=== PATIENT | male | born 1970 | race Caucasian/White ===

== ENCOUNTER → 2017-12-14 | Outpatient (CLI) | payer OTHER ==
[~2017-12-14] MED LIST: LANS15CA6 PO
[2017-12-14 17:49] LABS: BASO % 1.4 %; BASO ABS # 0.08 K/uL (0-0.2); EOS % 4.6 %; EOS ABS # 0.27 K/uL (0-0.5); HEMATOCRIT 45.2 % (42-52); HEMOGLOBIN 15.7 g/dL (14.0-18.0); IG# 0.02 K/uL (0.00-0.02); LYMPH % 24.1 %; LYMPH ABS # 1.41 K/uL (1.2-3.4); MEAN CELL VOLUME 83.5 fL (80-100); MEAN CORPUSCULAR HGB CONC 34.7 g/dl (32-36); MEAN PLATELET VOLUME 10.3 fL (7.4-10.4); MONO % 9.1 %; MONO ABS # 0.53 K/uL (0.11-0.59); NEUT % 60.5 %; NEUT ABS # 3.54 K/uL (1.4-6.5); PLATELET COUNT 267 K/uL (130-400); RED CELL DISTRIBUTION WIDTH CV 13.6 % (11.5-14.5); WHITE BLOOD COUNT 5.85 K/uL (4.8-10.8)
[2017-12-14 18:14] LABS: ALBUMIN 4.3 gm/dl (3.4-5.0); ALT/SGPT 46 U/L (12-78); AST/SGOT 20 U/L (15-37); BLOOD UREA NITROGEN 14 mg/dl (7-18); CALCIUM 9.1 mg/dl (8.5-10.1); CARBON DIOXIDE 28 mmol/L (21-32); CREATININE 1.05 mg/dl (0.60-1.40); GLUCOSE 97 mg/dl (70-99); POTASSIUM 4.3 mmol/L (3.5-5.1); SODIUM 137 mmol/L (136-145)
[2017-12-14 18:25] LABS: ALKALINE PHOSPHATASE 72 U/L (45-117); CHOLESTEROL 212 mg/dl (0-200); LDL CHOLESTEROL CALCULATED 132 mg/dl
== END | disposition home or self-care (01) ==
LOC: C.LABPBG 12:04
PROVIDERS: ATTEND Neuromusculoskeletal Medicine & OMM
DX: R53.83 Other fatigue (principal); R06.83 Snoring; Z13.220 Encounter for screening for lipoid disorders

== ENCOUNTER 2023-10-28 06:07 | Observation (INO) ==
--- NOTE | 2023-10-21 13:45 | Anesthesiology Consultation ---
Date of Service October 21, 2023 Assessment & Plan Chart Review Chart Review: Acceptable Risk for Surgery and Patient NOT seen in Pre Admission Testing Consults Requested none History Surgery Operation Date: 10/28/23 07:30 Proposed Procedures p Robotic Assisted Laparoscopic Radical Retropubic Prostatectomy, Possible Open, Possible Pelvic Lymph Node Dissection - Landon David MD Height/Weight Height: 5 ft 6 in Weight: 81.647 kg Allergies Allergy/AdvReac Type Severity Reaction Status Date / Time No Known Drug Allergies Allergy Verified 10/21/23 12:10 Medications Home Medications Medication Instructions Recorded Confirmed Last Taken albuterol sulfate 1.25 mg/3 mL 1.25 mg (3 mL) inhalation QID PRN 06/27/19 10/21/23 Unknown solution for nebulization shortness of breath or wheezing #90 mL fluocinolone 0.01 % topical body 1 appln topical UD #118.28 mL 06/27/19 10/21/23 Unknown oil betamethasone valerate 0.1 % 1 applic topical DAILY #45 grams 10/22/20 10/21/23 Unknown topical cream montelukast 10 mg tablet 10 mg PO QPM #30 tabs 03/18/21 10/21/23 Unknown albuterol sulfate 90 mcg/actuation 1 - 2 puff inhalation Q4H PRN 05/23/21 10/21/23 Unknown aerosol inhaler bronchospasm #18 grams fluticasone 250 mcg-salmeterol 50 1 inh inhalation QAM 08/24/23 10/21/23 Unknown mcg/dose blistr powdr for inhalation (Advair Diskus) alfuzosin 10 mg tablet,extended See Rx Instructions .Route 09/14/23 10/21/23 Unknown release 24 hr .COMPLEX #90 tabs Medical Marijuana 1 dose PO DIRECTED PRN Pain 10/21/23 10/21/23 Unknown lansoprazole 30 mg capsule,delayed 30 mg PO QAM 10/21/23 10/21/23 Unknown release Past Medical History Medical History Hiatal hernia COVID-19 tested at Urgent Care in [place] > Oct 09, 2023 > congestion, loss of taste/smell > all resolved Hyperlipidemia pt unaware Asthma uses res inh more in fall/spring Psoriasis GERD (gastroesophageal reflux disease) Prostate cancer (08/05/23) Elevated prostate specific antigen (PSA) Past Family History Family History Brother Myocardial infarction Hypertension Cardiac disorder Mother , Passed 40's Breast cancer Bilateral Masectomy Father Lung disease Sister Diabetes Brother Lymphoma Brother No problems noted. Brother No problems noted. Brother No problems noted. Sister No problems noted. Sister No problems noted. Sister No problems noted. Sister No problems noted. Sister No problems noted. Sister No problems noted. Sister No problems noted. Daughter No problems noted. Daughter No problems noted. Daughter No problems noted. Son No problems noted. Son No problems noted. Denies family history of Ovarian cancer Prostate cancer Colorectal cancer Past Surgical History Surgical History History of colonoscopy History of colon resection (08/2022) sigmoid > benign 2021 H/O endoscopy Social History Smoking Status: Never smoker Do You Dip or Chew Tobacco: Yes (advised npo status) Hx Alcohol Use: Yes alcohol intake frequency: holidays/special occasions only Hx Substance Use: Yes substance use type: marijuana Substance Use Type Other:: medical card > rare use Last Used Substance: Unknown
[~2023-10-28 06:07] MED LIST changes: +HEPARIN SOD 5,000 UNIT/0.5 ML VIAL SQ SCH; +LACTATED RINGER'S 1,000 ML IV SCH; -LANS15CA6 PO; +LR 15ML/HR IV SCH; +ceFAZolin 2000MG 2,000 MG/15 ML SYR IV SCH
[2023-10-28] MEDS ORDERED: ROCURONIUM BROMIDE 10 MG/ML 5 ML VIAL IV ONE ×3 (06:36→10:29)
[2023-10-28] MEDS ORDERED: PROPOFOL IV EMULSION 10 MG/ML 20 ML VIAL IV ONE (06:36)
[2023-10-28] MEDS ORDERED: fentaNYL citrate PF 100 MCG/2 ML VIAL ONE ×3 (06:36→08:14)
[2023-10-28] MEDS ORDERED: MIDAZOLAM HCL 1 MG/ML 2ML VIAL ONE (06:37)
[2023-10-28] MEDS ORDERED: HYDROmorphone INJ 2 MG/ML SYR/VIAL IV PRN (06:49)
[2023-10-28] MEDS ORDERED: ONDANSETRON INJ 2 MG/ML 2 ML VIAL IV PRN ×2 (06:49→14:09)
[2023-10-28] MEDS ORDERED: ATROPINE SULFATE 0.1 MG/ML 10ML SYR IV PRN (06:49)
[2023-10-28] MEDS ORDERED: ePHEDrine sulfate 50 MG/ML AMP IV PRN (06:49)
[2023-10-28] MEDS ORDERED: fentaNYL citrate PF 100 MCG/2 ML VIAL IV PRN (06:49)
--- NOTE | 2023-10-28 07:12 | History & Physical Bridge Note ---
Date of Service October 28, 2023 History & Physical Bridge Note I have examined the patient, reviewed the History & Physical and in the interval since the performance of the History & Physical I have noted the following changes of clinical significance: no changes noted
[2023-10-28] MEDS ORDERED: BUPIVACAINE 0.5 % 5 MG/1 ML MPF 30ML VIAL ONE (07:25)
[2023-10-28] MEDS ORDERED: DEXAMETHASONE SOD INJ 4 MG/ML VIAL ONE ×2 (07:59)
[2023-10-28] MEDS ORDERED: ONDANSETRON INJ 2 MG/ML 2 ML VIAL ONE (07:59)
[2023-10-28] MEDS ORDERED: HYDROmorphone INJ 2 MG/ML SYR/VIAL ONE (08:26)
[2023-10-28] MEDS ORDERED: SURGICEL ABSORB HEMOSTAT 2IN X 14IN TOP ONE (09:34)
[2023-10-28] MEDS ORDERED: GLYCOPYRROLATE 0.2 MG/ML VIAL ONE (10:03)
[2023-10-28] MEDS ORDERED: NEOSTIGMINE METHYLSULFATE 1 MG/ML 10ML VIAL ONE (10:03)
--- NOTE | 2023-10-28 12:50 | Anesthesiology Progress Note ---
Date of Service October 28, 2023 Anesthesia Post Procedure Vital Signs Vital Signs: Temp Pulse Resp BP Pulse Ox O2 Del Method 10/28/23 06:33 36.4 C L 75 18 108/85 98 Room Air Transfer of Care Handoff Completed per policy Notes Mental Status: alert / awake / arousable and participated in evaluation Patient Amnestic to Procedure: Yes Nausea / Vomiting: adequately controlled Pain: adequately controlled Airway Patency, RR, SpO2: stable & adequate BP & HR: stable & adequate Hydration State: stable & adequate Anesthetic Complications: no major complications apparent and Pt Satisfied with anesthetic care
--- NOTE | 2023-10-28 12:52 | Operative Report ---
PG Post Operative Report Pre & Post Diagnosis Operation Date: 10/28/23 07:30 Pre-Op Diagnosis: prostate cancer Post-Op Diagnosis: prostate cancer I identified the patient and participated in the time-out.: Yes Procedure Operation Date: 10/28/23 07:30 Actual Procedures p Robotic Assisted Laparoscopic Radical Retropubic Prostatectomy, Pelvic Lymph Node Dissection - Landon David MD Surgeon Landon David MD Road Marker CELSA Joy and CELSA Romero Estimated Blood Loss 100 Findings Consistent with Post-Op Diagnosis Specimens 1) periprostatic fat 2) right pelvic lymph nodes 3) left pelvic lymph nodes 4) prostate, vas deferens, seminal vesicles Drains Campos catheter per urethra Anesthesia Type General Complications none Disposition Accompanied Patient To Recovery: Yes Disposition: Recovery Room Indications This is a 53-year-old male followed by urology for prostate cancer. He presents to the OR today for robot-assisted radical prostatectomy. Description of Procedure The patient was identified in the preoperative holding area and informed consent was confirmed. He was then brought to the operating room where general anesthesia was initiated. He was placed supine on the operating room table with all pressure points appropriately padded. His abdomen and genitalia were prepped and draped in the usual sterile fashion and a timeout was performed. Upon inspection, there was a 4 cm scar above the pubic symphysis as well as a subcentimeter scar in the left upper quadrant from his prior bowel resection and drain placement. A 2 cm incision was made above the umbilicus and then a Veress needle was used to obtain access to the abdomen. Proper position was confirmed with the drop test and low initial insufflation pressure. The abdomen was insufflated with CO2 to a pressure of 15 mmHg. An 8 mm robotic port was placed in the incision and the robotic camera was inserted. The abdominal cavity was surveyed, demonstrating no injury to intra-abdominal contents. There was some colon adhesions to the sidewall of the abdomen, but these seemed well away from the field near the prostate.. The remaining robotic ports were placed under direct visualization, with 2 robotic ports on the left side and 1 robotic port on the right. A 12 mm distribution center assistant port was placed on the right side as well, and a 5 mm distribution center assistant port was placed in the right upper quadrant. The robot was then docked. Using electrocautery, the bladder was then dropped from the anterior wall of the abdomen, exposing the space of Retzius. This dissection was carried down to expose the pelvic brim and subsequently the anterior surface of the prostate and the endopelvic fascia. There was a fair amount of inflammation in the left side of the pelvis and pelvic brim with some variant blood vessels. The fat overlying the anterior of the prostate was removed and sent for pathologic analysis, labeled as 'periprostatic fat'. The endopelvic fascia was then divided on each side to expose the lateral aspects of the prostate and the lateral aspects of the pedicles. A single 3-0 V-Loc suture was used to ligate the dorsal venous complex to prevent backbleeding in subsequent steps. The fourth arm of the robot was then used to put some gentle traction on the bladder, and the bladder neck was identified. Using electrocautery, the anterior bladder neck was dissected to expose the Campos catheter, whose tip was removed from the bladder and held anteriorly. The posterior bladder neck dissection was then completed. At this point bilateral vas deferens were exposed and isolated. The vas deferens were cauterized and then divided. Bilateral seminal vesicles were dissected out as well. Denonvilliers fascia was then divided and the posterior prostate dissection was carried up as far as possible toward the urethra. The pedicles were then divided using combination of clips and sharp dissection, trying to use minimal electrocautery. On the right side, a nerve sparing approach was used. On the left side, a partial-nerve sparing approach was used. Attention was turned anteriorly and the dorsal venous complex was divided using sharp dissection and electrocautery. The urethra was isolated and then divided sharply. At this point, the prostate was free and was placed in a specimen bag. Bilateral pelvic lymph node dissection was then performed, and the sherita tissue was sent for pathologic analysis. There was a somewhat firm appearing nodule of fatty tissue sitting on the left iliac artery which was that with the sherita packet. There was not much tissue on the right side The pelvis was inspected and meticulous hemostasis was ensured using point cautery and a single [id number] 4-0 Monocryl suture. Double-armed V-Loc suture was then used to re-anastomose the bladder neck with the urethra. Once this was complete, the anastomosis was tested by instilling 120 mL of normal saline into the bladder. Satisfied that the anastomosis was watertight, the catheter balloon was inflated with 10 mL of normal saline. Surgicel was then applied to the lateral aspects of the pelvis for hemostasis. An additional piece of Surgicel was placed on the left side of the pelvic brim where there had been the inflammation and extra vessels. The robot was then undocked. The supraumbilical incision was extended and the prostate was extracted. 0 Vicryl suture was then used to close the fascia at this incision. All skin incisions were closed with 4-0 Monocryl suture and then a layer of Dermabond was applied. The patient was then awakened from anesthesia and was brought to the PACU in stable condition. CELSA Joy acted as the bedside distribution center assistant for the duration of the case. She assisted with gaining access, providing retraction and suction, Passing in sutures and applying clips as needed. She also helped with specimen extraction and closing. CELSA Romero was also at the bedside, learning how to act as a bedside distribution center assistant. I attest to the content of the Intraoperative Record and any orders documented therein. Any exceptions are noted below.
[2023-10-28] MEDS ORDERED: MoRPHine SULFATE 2 MG/ML CARP IV PRN ×2 (14:09)
[2023-10-28] MEDS ORDERED: IBUPROFEN 200 MG TAB PO PRN (14:09)
[2023-10-28] MEDS ORDERED: oxyCODONE HCL IR 5 MG TAB (IMMEDIATE RELEASE) PO PRN ×2 (14:09)
[2023-10-28] MEDS ORDERED: ALBUTEROL HFA 8 GM INHALER INH PRN (14:09)
[2023-10-28] MEDS ORDERED: ALBUTEROL 0.083% NEBU SOLN 3 ML VIAL INH PRN (14:09)
[2023-10-28] MEDS: LACTATED RINGER'S 1,000 ML IV SCH ×2 (14:31→22:21)
[2023-10-28] MEDS: ceFAZolin 2000MG 2,000 MG/15 ML SYR IV SCH ×2 (16:18→22:17)
[2023-10-28] MEDS: ACETAMINOPHEN 325 MG TAB PO SCH (18:38)
[2023-10-28] MEDS: DOCUSATE SODIUM 100 MG CAP PO SCH (21:00)
[2023-10-28] MEDS: HEPARIN SOD 5,000 UNIT/0.5 ML VIAL SQ SCH (21:00)
[2023-10-28] MEDS ORDERED: MONTELUKAST SODIUM 10 MG TABLET PO SCH (21:00)
[2023-10-29] MEDS: ACETAMINOPHEN 325 MG TAB PO SCH ×2 (00:32→06:45)
[2023-10-29] MEDS: LACTATED RINGER'S 1,000 ML IV SCH (06:45)
[2023-10-29 07:34] LABS: Basophils # (auto) 0.03 K/uL (0.00-0.20); Basophils % (auto) 0.3 %; Eosinophils # (auto) 0.04 K/uL (0.00-0.50); Eosinophils % (auto) 0.4 %; Hemoglobin 13.7 g/dl (14.0-18.0); Immature Granulocytes # (auto) 0.03 K/uL (0.01-0.20); Immature Granulocytes % (auto) 0.3 %; Lymphocytes # (auto) 1.55 K/uL (1.20-3.40); Lymphocytes % (auto) 14.1 %; Mean Corpuscular Hemoglobin 28.1 pg (25.0-34.0); Mean Corpuscular Hgb Conc 33.4 g/dL (32.0-36.0); Mean Corpuscular Volume 84.2 fL (80.0-100.0); Mean Platelet Volume 9.9 fL (9.4-12.4); Monocytes # (auto) 1.07 K/uL (0.11-0.59); Monocytes % (auto) 9.7 %; Neutrophils # (auto) 8.27 K/uL (1.40-6.50); Neutrophils % (auto) 75.2 %; Platelet Count 263 K/uL (130-400); RDW Coefficient of Variation 13.5 % (11.5-14.5); RDW Standard Deviation 41.7 fL (36.4-46.3); Red Blood Count 4.87 M/uL (4.70-6.10); White Blood Count 10.99 K/ul (4.8-10.8)
[2023-10-29] MEDS: DOCUSATE SODIUM 100 MG CAP PO SCH (08:11)
[2023-10-29] MEDS: HEPARIN SOD 5,000 UNIT/0.5 ML VIAL SQ SCH (08:13)
--- NOTE | 2023-10-29 08:14 | Urology Progress Note ---
Date of Service October 29, 2023 Assessment & Plan (1) Prostate cancer: Plan: Recovering appropriately s/p radical prostatectomy. He is ambulating, tolerating a diet and pain is well-controlled. Should be ready for discharge home today. Admission and Anticipated Discharge Date Admission Date: October 28, 2023 Subjective Feeling well this morning Tolerating a diet Has been up out of bed to the bathroom Not having much pain WBC 10.9 Creatinine pending Physical Exam Physical Exam: Well-appearing, NAD Gastrointestinal (Abdomen): Abdomen soft, appropriately tender. Incisions well approximated with Dermabond. Genitourinary: Campos catheter in place draining concentrated urine Results & Data Vital Signs (Past 12 Hours) Vital Signs Temp Pulse Pulse Pulse Resp BP Pulse Ox 10/29/23 07:26 36.8 C 82 18 148/80 H 94 10/29/23 04:31 36.8 C 80 16 142/83 H 93 10/29/23 00:35 36.8 C 94 H 16 155/80 H 95 10/28/23 22:15 101 H 134/83 10/28/23 20:52 37.2 C 86 16 161/81 H 94 O2 Del Method 10/29/23 07:26 Room Air 10/29/23 04:31 Room Air 10/29/23 00:35 Room Air 10/28/23 22:15 10/28/23 20:52 Room Air PG Care Time/CCT Total # of Minutes Spent Total Time Spent with Patient: Total time spent is greater than 50% in coordination of care (as documented) at patient's floor/unit and/or counseling patient: Coding Level of Care Code None Diagnoses Prostate cancer C61
--- NOTE | 2023-10-29 08:21 | Discharge Summary ---
Date of Service October 29, 2023 Admission HPI Per Admitting Provider This is a 53-year-old male followed by urology for prostate cancer. He presented to the OR on 10/28/2023 for robotic radical prostatectomy. He was admitted postoperatively in good condition. Admission Exam Per Admitting Provider Constitutional well developed and well nourished; no acute distress Eyes + anicteric sclerae; pupils not irregular Respiratory normal respiratory effort; no respiratory distress, does not use accessory muscles and no cough Cardiovascular well perfused Gastrointestinal (Abdomen) Inspection/Auscultation: abdomen normal to inspection; abdomen not distended Approximately 3 to 4 cm suprapubic incision and left upper quadrant incision (1 cm), both well-healed Musculoskeletal Extremities: extremities normal to inspection Skin normal turgor; no rashes and no lesions Neurologic moves all extremities and awake Psychiatric Orientation: alert and oriented x 3 Principal Diagnosis Prostate cancer Discharge Exam Well-appearing, NAD Gastrointestinal (Abdomen) Soft, appropriately tender, incisions with Dermabond. Genitourinary Caraballo draining clear, concentrated urine Discharge Data Allergies Allergy/AdvReac Type Severity Reaction Status Date / Time No Known Drug Allergies Allergy Verified 10/28/23 06:30 Procedures Performed Operation Date: 10/28/23 07:30 Actual Procedures p Robotic Assisted Laparoscopic Radical Retropubic Prostatectomy, Pelvic Lymph Node Dissection(Not Applicable) - Landon David MD Hospital Course (1) Prostate cancer: He underwent radical prostatectomy on 10/28/2023. By the time of discharge, he was ambulating, tolerating a diet and pain was well-controlled on oral medications. He was discharged home on 10/29/2023. Total Time Total Time Spent Total Time Spent (In Minutes): 15 Discharge Plan Discharge Items Patient Disposition: Home - Self-Care Reason For Visit: Prostate Cancer Discharge Diagnosis: Prostate cancer Activity: Per Instructions section Non-emergency contact: Urologist Call non-emergency contact if: your pain is not controlled, your pain is unusual for you, you have a fever, your temperature is above 101, your wound has increased redness, your wound has increased drainage and your wound pain has increased Follow-up/Referrals: William Azevedo DO [Primary Care Provider] - Diet: Regular Addtl Attending Provider Instructions: The surgery you had was: Robot-assisted radical prostatectomy with bilateral pelvic lymph node dissection. Please take all medications as prescribed and keep all follow-ups as scheduled. Please call our office at [phone] with any questions, concerns or need to reschedule appointments for any reason. We are happy to assist you Medications: Please take all medications as prescribed. For pain control, you can take tylenol every 6 hours. You can also take ibuprofen every 6 hours. If you have been prescribed a narcotic pain medication, please take this according to the instructions on the label. You have been prescribed a single dose of antibiotics (Bactrim) to be taken 1 hour prior to your appointment for caraballo catheter removal. Activity: We recommend having someone with you for the first few days after surgery to help care for you. For the first 2 weeks after surgery, we would like you to get up and walk around your house. However, we recommend limit physical activity that would increase your heart rate. This will allow your body to rest and heal. Take naps if you feel tired. Don't lift anything heavier than 10 pounds, mow the law or ride a bicycle until your follow-up appointment. Please avoid long car rides. Home Care: Unless directed otherwise, drink 6 to 8 glasses of water a day (enough to keep your urine light colored). This will also help keep a healthy flow of urine. We recommend using a stool softener such as colace or miralax for the first two weeks to avoid constipation. Caraballo Catheter or Suprapubic Catheter care: Keep the catheter well secured with either a leg back or leg strap with large bag. Empty your bag when it's about half full. You may notice some blood in the bag. This is normal after surgery and while the catheter is in place. Use mild soap (such as Dove or Dial) and water to wash the catheter and the head of your penis daily, or more frequently if needed. Return to your normal diet, we encourage good protein intake to promote healing. You may shower as normal. Please avoid tub baths or soaking until catheter removed and incisions well healed. Wearing sweat pants while you have the catheter is recommended, they will be more comfortable. Follow-up We will have you come to the office in approximately 7 days for catheter removal and pathology review. - Please remember to take your dose on antibiotics 1 hour prior to this appointment. Call [facility] at [phone] right away if you have any of the following: Chest pain or trouble breathing (call 911 or go to the hospital) Fever of 101F or higher, uncontrolled vomiting Heavy bleeding, clots, or bright red blood from the catheter Catheter that falls out or stops draining Foul-smelling discharge from your catheter Redness, swelling, warmth, or increased pain at your incision site Drainage, pus, or bleeding from your incision Pending Studies at Discharge: No Stand-Alone Forms: My [facility], Smoking Cessation Medications and DC Order Prescriptions: New sulfamethoxazole-trimethoprim [Bactrim DS] 800-160 mg tablet 1 tab PO ONCE 1 Days Qty: 1 0RF Continued fluticasone propion-salmeterol [Advair Diskus] 250-50 mcg/dose blister with device 1 inh inhalation QAM betamethasone valerate 0.1 % cream 1 applic topical DAILY Qty: 45 3RF montelukast 10 mg tablet 10 mg PO QPM Qty: 30 5RF albuterol sulfate 90 mcg/actuation HFA aerosol inhaler 1 - 2 puff inhalation Q4H PRN (Reason: bronchospasm) Qty: 18 5RF alfuzosin 10 mg tablet extended release 24 hr See Rx Instructions .ROUTE .COMPLEX Qty: 90 3RF Dose Instruction: TAKE 1 TABLET BY MOUTH ONCE DAILY AFTER THE SAME MEAL EACH DAY Rx Instructions: TAKE 1 TABLET BY MOUTH ONCE DAILY AFTER THE SAME MEAL EACH DAY fluocinolone 0.01 % oil 1 appln topical UD Qty: 118.28 3RF albuterol sulfate 1.25 mg/3 mL solution for nebulization 1.25 mg INH QID PRN (Reason: shortness of breath or wheezing) Qty: 90 0RF lansoprazole 30 mg Capsule,Delayed Release(Dr/Ec) 30 mg PO QAM Medical Marijuana 1 dose PO DIRECTED PRN (Reason: Pain) Discharge Orders: Discharge Order (Routine); Ordered 10/29/23 Ordered By: Landon David Admission Data Admit Date/Time: 10/28/23 12:43 Attending Provider: Landon David Admit Provider: Landon David Primary Care Provider: William Azevedo Coding Level of Care Code 74287 IN/OBS DISCH 30 MIN/LESS Diagnoses Prostate cancer C61
[2023-10-29 08:31] LABS: BUN Creatinine Ratio 11.4 (10-20); Calcium 8.4 mg/dl (8.6-10.3); Creatinine Clr Calc Pharmacy 97.8 ml/min; Est GFR (African American) 112.9 ml/min; Est GFR (Non-African American) 97.4 ml/min; Potassium 3.9 mmol/L (3.5-5.1)
[2023-10-29] MEDS ORDERED: PANTOprazole 40 MG TAB PO SCH (09:00)
[2023-10-29] MEDS ORDERED: FLUTICASONE/VILANTEROL 200/25MCG 14 PUFFS/INHALER INH SCH (09:00)
== END 2023-10-29 11:45 | disposition home or self-care (01) ==
LOC: ASU 06:07 → 3W 12:43 → INTOOBSV 12:43